=== PATIENT | female | born 1930 | race Caucasian/White ===

== ENCOUNTER 2018-04-28 17:34 | Emergency (ER) | payer MEDICARE, BC ==
[~2018-04-28] VITALS: Ht 162.6 cm; Wt 83.0 kg
[2018-04-28] MEDS ORDERED: DOXYCYCLINE 100MG CAPSULE PO STA (18:39)
[2018-04-28] MEDS ORDERED: cloNIDine 0.1 mg tablet PO ONE (18:40)
[2018-04-28] MEDS ORDERED: DOXY100C43 PO (19:49)
[2018-04-28 20:03] VITALS: BP 12/72
== END 2018-04-28 20:04 | disposition home or self-care (01) ==
LOC: ER 17:35
DX: I10 Essential (primary) hypertension (principal); L03.115 Cellulitis of right lower limb; Z79.2 Long term (current) use of antibiotics
CPT/HCPCS: 99284; A6255; A6446; A6449